=== PATIENT | male | born 1980 | race Caucasian/White ===

== ENCOUNTER 2017-03-14 20:16 | Emergency (ER) | payer SELFPAY ==
[2017-03-14] MEDS ORDERED: Sulfameth/Trimethoprim DS 800-160mg TAB ONE (20:39)
[2017-03-14] MEDS ORDERED: HYDROcodone/Acetaminophen 10/325 mg Tablet ONE (21:18)
[2017-03-14] MEDS ORDERED: Triple Antibiotic Oint 1 GM Packet ONE (21:18)
== END 2017-03-14 21:31 | disposition home or self-care (01) ==
LOC: BURERS 20:16
DX: S61.112A Laceration without foreign body of left thumb with damage to nail, initial encounter (principal); X58.XXXA Exposure to other specified factors, initial encounter
CPT/HCPCS: 12001; 90471; 96372